=== PATIENT | female | born 1985 | race Hispanic/Latino ===

== ENCOUNTER 2020-06-11 16:51 | Outpatient (CLI) | payer MEDICAID ==
[2020-06-11] MEDS ORDERED: LACTATED RINGERS 1,000 ML IV SCH (17:30)
--- NOTE | 2020-06-11 18:09 | History and Physical Report ---
History of Present Illness Date of examination: 06/11/20 Date of admission: 06/11/2020 Chief complaint: I was told that my baby is small History of present illness: Pt is a 34 year old who presented today from [facility] after being told that her baby was severely IUGR with polyhydramnios and that she would need to be delivered. Pt was sent there to decide EDC as patient has had only 2 visits (one in January and one in May) and never had ultrasound performed due to insurance issues. Pt had normal 10/03 testing on exam with a reactive NST and normal doppler flow. The EDC of 07/03/20 was arrived at only because of patients reported LMP however patient has a history of abnormal cycles. labs have not been drawn. ONly pap, cultures and GBS are available at this time. Past History Past Medical History: no pertinent history Past Surgical History: no surgical history Social history: - Obstetrical History : 3 Number of Living Children: 2 Medications and Allergies Allergies Allergy/AdvReac Type Severity Reaction Status Date / Time No Known Allergies Allergy Verified 03/05/19 10:12 Home Medications Medication Instructions Recorded Confirmed Last Taken Type Ferrous Sulfate [Iron 325 MG] 325 mg PO BID 03/05/19 03/05/19 03/05/19 06:30 History Vitamin 1 tab PO DAILY 03/05/19 03/05/19 03/04/19 09:00 History Ferrous Sulfate [Feosol 325 MG tab] 325 mg PO BID #60 tablet 03/08/19 Unknown Rx HYDROcodone/APAP 5-325 [[place] 1 each PO Q6HR PRN #20 tablet 03/08/19 Unknown Rx 5/325] Ibuprofen [Motrin] 800 mg PO Q8HR PRN #30 tablet 03/08/19 Unknown Rx Active Meds: Active Medications Lactated Ringer's (Lactated Ringers) 1,000 mls @ 125 mls/hr IV DIRECT MICHELLE Review of Systems All systems: negative Breasts: deferred Genitourinary: normal appearance - Vital Signs Vital signs: Vital Signs Pulse Pulse Ox 83 98 06/11/20 17:36 06/11/20 17:36 Temp Pulse Resp BP Pulse Ox 98 F 85 20 114/66 94 06/11/20 17:37 06/11/20 18:03 06/11/20 17:37 06/11/20 17:38 06/11/20 18:03 - Physical Exam Breasts: Cardiovascular: Regular rate, Normal S1, Normal S2 Lungs: Positive: Clear to auscultation, Normal air movement Abdomen: Positive: normal appearance, soft, normal bowel sounds. Negative: distention, tenderness Genitourinary (Female): Positive: normal external genitalia Vulva: both: normal Vagina: Positive: normal moisture. Negative: discharge Cervix: Negative: lesion, discharge Uterus: Positive: normal size, normal contour Adnexa: both: normal Anus/Rectum: Positive: rectal mass, heme negative. Negative: hemorrhoids Extremities: Deep Tendon Reflex Grade: Normal +2 - Obstetrical FHR: auscultation normal Cervical Dilatation: 0.5 Cervical Effacement Percentage: 50 station: -3 Uterine Contraction Pattern: Irregular Results All other labs normal. Assessment and Plan IUP sent from [facility] for delivery, however, patient has had no care and is unsure of lmp. Dr Head from [facility] was unavailable to discuss patient today. I feel strongly that patient's LMP is incorrect and that her actual EDC is closer to July 2020. Pt has excellent testing with 8/8 biophysical, and normal dopplers. In light of these findings, I would prefer not to deliver this patient who may be only 32 weeks instead of 37 as her EDC is based on an abnormal cycle and an estimate. Instead, will watch patient overnight and repeat BPP on tomorrow. If still stable, will consider discharge to home with follow up in office. WIll call [facility] doctor service station attendant to discuss.
[2020-06-11] MEDS ORDERED: LACTATED RINGERS 500 ML IV ONE (18:16)
[2020-06-11] MEDS ORDERED: BETAMET ACET/BETAMET NA PH 6 MG/ML INJ 5 ML MDV IM ONE ×2 (18:19→19:00)
[2020-06-11 23:52] LABS: Basophils % (Auto) 0.1 % (0.0-1.8); Eosinophils % (Auto) 0.2 % (0.0-4.3); Hematocrit 27.1 % (30.3-42.9); Lymphocytes # (Auto) 1.1 K/mm3 (1.2-5.4); Lymphocytes % (Auto) 10.3 % (13.4-35.0); Mean Corpuscular HGB Conc 33 % (30-34); Mean Corpuscular Volume 83 fl (79-97); Monocytes # (Auto) 0.1 K/mm3 (0.0-0.8); Platelet Count 241 K/mm3 (140-440); Red Blood Count 3.28 M/mm3 (3.65-5.03); Red Cell Distribution Width 14.4 % (13.2-15.2)
[2020-06-12 01:48] LABS: Bilirubin,Urine NEG (Negative); Blood,Urine NEG (Negative); Color,Urine Straw (Yellow); Protein,Urine <15 mg/dL mg/dL (Negative); RBC,Urine < 1.0 /HPF (0.0-6.0); Urobilinogen,Urine < 2.0 mg/dL (<2.0)
[2020-06-12] MEDS ORDERED: BETAMET ACET/BETAMET NA PH 6 MG/ML INJ 5 ML MDV IM ONE (07:00)
[2020-06-12 08:46] VITALS: BP 105/56
--- NOTE | 2020-06-12 11:31 | Progress Note ---
Assessment and Plan - Patient Problems (1) Intrauterine growth restriction affecting care of mother Current Visit: Yes Status: Acute Plan to address problem: Awaiting results of biophysical profile Subjective - Subjective Date of service: 06/12/20 Principal diagnosis: Suspected IUGR Interval history: The patient is currently without complaints. Determined that the estimated due date was an accurate. Patient does not demonstrate evidence of intrauterine growth restriction. Scheduled to have a biophysical profile today. Patient reports: no new complaints Objective - Vital Signs Vital Signs: Vital Signs - 12hr 06/11/20 06/11/20 06/11/20 23:31 23:36 23:41 Temperature Pulse Rate 89 90 98 H Respiratory Rate Blood Pressure Blood Pressure [Right] O2 Sat by Pulse 98 98 98 Oximetry 06/11/20 06/11/20 06/11/20 23:46 23:51 23:56 Temperature Pulse Rate 91 H 91 H 97 H Respiratory Rate Blood Pressure Blood Pressure [Right] O2 Sat by Pulse 99 98 98 Oximetry 06/11/20 06/12/20 06/12/20 23:59 00:00 00:01 Temperature 98.0 F Pulse Rate 85 88 Respiratory 18 Rate Blood Pressure 120/57 Blood Pressure [Right] O2 Sat by Pulse 98 Oximetry 06/12/20 06/12/20 06/12/20 00:06 00:11 00:16 Temperature Pulse Rate 88 89 86 Respiratory Rate Blood Pressure Blood Pressure [Right] O2 Sat by Pulse 98 97 96 Oximetry 06/12/20 06/12/20 06/12/20 00:21 00:26 00:31 Temperature Pulse Rate 87 96 H 93 H Respiratory Rate Blood Pressure Blood Pressure [Right] O2 Sat by Pulse 96 97 97 Oximetry 06/12/20 06/12/20 06/12/20 00:36 00:41 00:46 Temperature Pulse Rate 92 H 82 88 Respiratory Rate Blood Pressure Blood Pressure [Right] O2 Sat by Pulse 99 98 98 Oximetry 06/12/20 06/12/20 06/12/20 00:51 00:56 01:07 Temperature Pulse Rate 91 H 91 H 97 H Respiratory Rate Blood Pressure Blood Pressure [Right] O2 Sat by Pulse 96 96 99 Oximetry 06/12/20 06/12/20 06/12/20 01:10 01:12 01:17 Temperature Pulse Rate 79 90 84 Respiratory Rate Blood Pressure Blood Pressure [Right] O2 Sat by Pulse 91 96 96 Oximetry 06/12/20 06/12/20 06/12/20 01:22 01:27 01:32 Temperature Pulse Rate 85 85 88 Respiratory Rate Blood Pressure Blood Pressure [Right] O2 Sat by Pulse 97 97 98 Oximetry 06/12/20 06/12/20 06/12/20 01:37 01:42 01:47 Temperature Pulse Rate 88 96 H 90 Respiratory Rate Blood Pressure Blood Pressure [Right] O2 Sat by Pulse 97 99 96 Oximetry 06/12/20 06/12/20 06/12/20 01:52 01:57 02:02 Temperature Pulse Rate 91 H 90 103 H Respiratory Rate Blood Pressure Blood Pressure [Right] O2 Sat by Pulse 97 96 97 Oximetry 06/12/20 06/12/20 06/12/20 02:05 02:07 02:12 Temperature Pulse Rate 95 H 97 H 103 H Respiratory Rate Blood Pressure Blood Pressure [Right] O2 Sat by Pulse 94 97 98 Oximetry 06/12/20 06/12/20 06/12/20 02:17 02:22 02:27 Temperature Pulse Rate 99 H 95 H 93 H Respiratory Rate Blood Pressure Blood Pressure [Right] O2 Sat by Pulse 98 97 95 Oximetry 06/12/20 06/12/20 06/12/20 02:31 02:32 02:37 Temperature Pulse Rate 89 90 99 H Respiratory Rate Blood Pressure Blood Pressure [Right] O2 Sat by Pulse 94 95 97 Oximetry 06/12/20 06/12/20 06/12/20 02:42 02:47 02:52 Temperature Pulse Rate 89 88 91 H Respiratory Rate Blood Pressure Blood Pressure [Right] O2 Sat by Pulse 98 97 95 Oximetry 06/12/20 06/12/20 06/12/20 02:56 02:57 03:01 Temperature Pulse Rate 93 H 95 H 89 Respiratory Rate Blood Pressure Blood Pressure [Right] O2 Sat by Pulse 93 96 94 Oximetry 06/12/20 06/12/20 06/12/20 03:02 03:07 03:11 Temperature Pulse Rate 86 89 87 Respiratory Rate Blood Pressure Blood Pressure [Right] O2 Sat by Pulse 95 95 94 Oximetry 06/12/20 06/12/20 06/12/20 03:12 03:16 03:17 Temperature Pulse Rate 89 83 85 Respiratory Rate Blood Pressure Blood Pressure [Right] O2 Sat by Pulse 97 94 96 Oximetry 0406/12/20 06/12/20 03:22 03:25 03:27 Temperature Pulse Rate 89 85 89 Respiratory Rate Blood Pressure Blood Pressure [Right] O2 Sat by Pulse 96 94 95 Oximetry 06/12/20 06/12/20 06/12/20 03:31 03:32 03:36 Temperature Pulse Rate 79 79 80 Respiratory Rate Blood Pressure Blood Pressure [Right] O2 Sat by Pulse 88 95 94 Oximetry 06/12/20 06/12/20 06/12/20 03:37 03:42 03:43 Temperature Pulse Rate 82 79 81 Respiratory Rate Blood Pressure Blood Pressure [Right] O2 Sat by Pulse 96 95 94 Oximetry 06/12/20 06/12/20 06/12/20 03:47 03:52 03:57 Temperature Pulse Rate 82 80 80 Respiratory Rate Blood Pressure Blood Pressure [Right] O2 Sat by Pulse 94 94 94 Oximetry 06/12/20 06/12/20 06/12/20 04:02 04:07 04:08 Temperature Pulse Rate 78 79 79 Respiratory Rate Blood Pressure Blood Pressure [Right] O2 Sat by Pulse 93 95 93 Oximetry 06/12/20 06/12/20 06/12/20 04:12 04:14 04:17 Temperature Pulse Rate 84 78 81 Respiratory Rate Blood Pressure Blood Pressure [Right] O2 Sat by Pulse 95 94 95 Oximetry 06/12/20 06/12/20 06/12/20 04:19 04:22 04:25 Temperature Pulse Rate 83 80 79 Respiratory Rate Blood Pressure Blood Pressure [Right] O2 Sat by Pulse 93 95 93 Oximetry 06/12/20 06/12/20 06/12/20 04:27 04:28 04:31 Temperature 97.9 F Pulse Rate 95 H 85 Respiratory 16 Rate Blood Pressure 99/64 Blood Pressure [Right] O2 Sat by Pulse 96 Oximetry 06/12/20 06/12/20 06/12/20 04:32 04:37 04:39 Temperature Pulse Rate 81 82 82 Respiratory Rate Blood Pressure Blood Pressure [Right] O2 Sat by Pulse 96 95 94 Oximetry 06/12/20 06/12/20 06/12/20 04:42 04:47 04:49 Temperature Pulse Rate 84 80 84 Respiratory Rate Blood Pressure Blood Pressure [Right] O2 Sat by Pulse 95 95 94 Oximetry 06/12/20 06/12/20 06/12/20 04:53 04:56 04:58 Temperature Pulse Rate 87 82 75 Respiratory Rate Blood Pressure Blood Pressure [Right] O2 Sat by Pulse 96 94 95 Oximetry 06/12/20 06/12/20 06/12/20 05:03 05:08 05:09 Temperature Pulse Rate 77 75 77 Respiratory Rate Blood Pressure Blood Pressure [Right] O2 Sat by Pulse 94 95 94 Oximetry 06/12/20 06/12/20 06/12/20 05:13 05:14 05:18 Temperature Pulse Rate 78 79 83 Respiratory Rate Blood Pressure Blood Pressure [Right] O2 Sat by Pulse 94 94 94 Oximetry 06/12/20 06/12/20 06/12/20 05:19 05:23 05:25 Temperature Pulse Rate 78 79 78 Respiratory Rate Blood Pressure Blood Pressure [Right] O2 Sat by Pulse 94 95 94 Oximetry 06/12/20 06/12/20 06/12/20 05:28 05:30 05:33 Temperature Pulse Rate 79 77 83 Respiratory Rate Blood Pressure Blood Pressure [Right] O2 Sat by Pulse 95 94 94 Oximetry 06/12/20 06/12/20 06/12/20 05:35 05:38 05:43 Temperature Pulse Rate 75 75 73 Respiratory Rate Blood Pressure Blood Pressure [Right] O2 Sat by Pulse 94 94 96 Oximetry 06/12/20 06/12/20 06/12/20 05:48 05:49 05:53 Temperature Pulse Rate 77 74 77 Respiratory Rate Blood Pressure Blood Pressure [Right] O2 Sat by Pulse 96 92 95 Oximetry 06/12/20 06/12/20 06/12/20 05:58 06:03 06:08 Temperature Pulse Rate 78 78 77 Respiratory Rate Blood Pressure Blood Pressure [Right] O2 Sat by Pulse 96 97 96 Oximetry 06/12/20 06/12/20 06/12/20 06:13 06:18 06:23 Temperature Pulse Rate 78 86 80 Respiratory Rate Blood Pressure Blood Pressure [Right] O2 Sat by Pulse 96 97 98 Oximetry 06/12/20 06/12/20 06/12/20 06:28 06:33 06:36 Temperature Pulse Rate 80 79 84 Respiratory Rate Blood Pressure Blood Pressure [Right] O2 Sat by Pulse 95 96 93 Oximetry 06/12/20 06/12/20 06/12/20 06:38 06:43 06:48 Temperature Pulse Rate 80 83 83 Respiratory Rate Blood Pressure Blood Pressure [Right] O2 Sat by Pulse 96 96 95 Oximetry 06/12/20 06/12/20 06/12/20 06:49 06:53 06:58 Temperature Pulse Rate 80 86 87 Respiratory Rate Blood Pressure Blood Pressure [Right] O2 Sat by Pulse 94 95 95 Oximetry 06/12/20 06/12/20 06/12/20 07:03 07:08 07:13 Temperature Pulse Rate 85 81 84 Respiratory Rate Blood Pressure Blood Pressure [Right] O2 Sat by Pulse 96 96 95 Oximetry 06/12/20 06/12/20 06/12/20 07:18 07:23 07:28 Temperature Pulse Rate 83 81 81 Respiratory Rate Blood Pressure Blood Pressure [Right] O2 Sat by Pulse 95 95 96 Oximetry 06/12/20 06/12/20 06/12/20 07:33 07:38 07:39 Temperature Pulse Rate 82 80 81 Respiratory Rate Blood Pressure Blood Pressure [Right] O2 Sat by Pulse 94 95 94 Oximetry 06/12/20 06/12/20 06/12/20 07:43 07:44 07:48 Temperature Pulse Rate 80 81 82 Respiratory Rate Blood Pressure Blood Pressure [Right] O2 Sat by Pulse 94 94 95 Oximetry 06/12/20 06/12/20 06/12/20 07:50 07:53 07:56 Temperature Pulse Rate 79 80 80 Respiratory Rate Blood Pressure Blood Pressure [Right] O2 Sat by Pulse 94 94 94 Oximetry 06/12/20 06/12/20 06/12/20 07:58 08:02 08:03 Temperature Pulse Rate 82 84 81 Respiratory Rate Blood Pressure Blood Pressure [Right] O2 Sat by Pulse 95 94 94 Oximetry 06/12/20 06/12/20 06/12/20 08:07 08:08 08:13 Temperature Pulse Rate 80 79 83 Respiratory Rate Blood Pressure Blood Pressure [Right] O2 Sat by Pulse 93 95 95 Oximetry 06/12/20 06/12/20 06/12/20 08:18 08:22 08:23 Temperature Pulse Rate 83 81 80 Respiratory Rate Blood Pressure Blood Pressure [Right] O2 Sat by Pulse 96 94 95 Oximetry 06/12/20 06/12/20 06/12/20 08:28 08:33 08:38 Temperature Pulse Rate 80 78 83 Respiratory Rate Blood Pressure Blood Pressure [Right] O2 Sat by Pulse 97 95 95 Oximetry 06/12/20 06/12/20 06/12/20 08:39 08:43 08:45 Temperature 98.1 F Pulse Rate 76 81 89 Respiratory 18 Rate Blood Pressure 105/56 Blood Pressure 105/56 [Right] O2 Sat by Pulse 94 95 96 Oximetry 06/12/20 06/12/20 06/12/20 08:48 08:53 08:54 Temperature Pulse Rate 88 79 79 Respiratory Rate Blood Pressure Blood Pressure [Right] O2 Sat by Pulse 97 93 92 Oximetry 06/12/20 06/12/20 06/12/20 08:58 09:05 09:10 Temperature Pulse Rate 90 87 81 Respiratory Rate Blood Pressure Blood Pressure [Right] O2 Sat by Pulse 99 99 100 Oximetry 06/12/20 06/12/20 06/12/20 09:15 09:20 09:25 Temperature Pulse Rate 83 81 81 Respiratory Rate Blood Pressure Blood Pressure [Right] O2 Sat by Pulse 99 98 99 Oximetry 06/12/20 06/12/20 06/12/20 09:30 09:35 09:40 Temperature Pulse Rate 85 80 83 Respiratory Rate Blood Pressure Blood Pressure [Right] O2 Sat by Pulse 98 99 98 Oximetry 06/12/20 06/12/20 06/12/20 09:45 09:50 09:55 Temperature Pulse Rate 81 81 81 Respiratory Rate Blood Pressure Blood Pressure [Right] O2 Sat by Pulse 99 97 98 Oximetry 06/12/20 06/12/20 06/12/20 10:00 10:01 10:05 Temperature Pulse Rate 88 92 H 95 H Respiratory Rate Blood Pressure Blood Pressure [Right] O2 Sat by Pulse 99 93 99 Oximetry 06/12/20 06/12/20 06/12/20 10:10 10:15 10:20 Temperature Pulse Rate 94 H 97 H 95 H Respiratory Rate Blood Pressure Blood Pressure [Right] O2 Sat by Pulse 99 100 100 Oximetry 06/12/20 06/12/20 06/12/20 10:25 10:30 10:35 Temperature Pulse Rate 90 91 H 88 Respiratory Rate Blood Pressure Blood Pressure [Right] O2 Sat by Pulse 100 97 98 Oximetry 06/12/20 06/12/20 06/12/20 10:40 10:45 10:50 Temperature Pulse Rate 109 H 92 H 93 H Respiratory Rate Blood Pressure Blood Pressure [Right] O2 Sat by Pulse 98 98 97 Oximetry 06/12/20 06/12/20 06/12/20 10:55 11:00 11:05 Temperature Pulse Rate 89 104 H 96 H Respiratory Rate Blood Pressure Blood Pressure [Right] O2 Sat by Pulse 97 96 97 Oximetry 06/12/20 06/12/20 06/12/20 11:10 11:15 11:20 Temperature Pulse Rate 89 87 92 H Respiratory Rate Blood Pressure Blood Pressure [Right] O2 Sat by Pulse 97 97 95 Oximetry 06/12/20 11:25 Temperature Pulse Rate 88 Respiratory Rate Blood Pressure Blood Pressure [Right] O2 Sat by Pulse 96 Oximetry - Labs Labs: Abnormal Labs 06/11/20 23:24 RBC 3.28 L Hgb 9.0 L Hct 27.1 L Lymph % (Auto) 10.3 L Lymph # (Auto) 1.1 L Seg Neutrophils % 88.4 H Seg Neutrophils # 9.6 H Laboratory Results - last 24 hr 06/11/20 06/11/20 06/11/20 23:24 23:24 23:24 WBC 10.9 RBC 3.28 L Hgb 9.0 L Hct 27.1 L MCV 83 MCH 28 MCHC 33 RDW 14.4 Plt Count 241 Lymph % (Auto) 10.3 L [place] % (Auto) 1.0 Eos % (Auto) 0.2 Baso % (Auto) 0.1 Lymph # (Auto) 1.1 L [place] # (Auto) 0.1 Eos # (Auto) 0.0 Baso # (Auto) 0.0 Seg Neutrophils % 88.4 H Seg Neutrophils # 9.6 H Urine Color Urine Turbidity Urine pH Ur Specific [place] Urine Protein Urine Glucose (UA) Urine Ketones Urine Blood Urine Nitrite Urine Bilirubin Urine Urobilinogen Ur Leukocyte Esterase Urine WBC (Auto) Urine RBC (Auto) Syphilis IgG Antibody Nonreactive HIV 1&2 Antibody Rapid HIV P24 Antigen Rubella IgG Antibody Blood Type O POSITIVE Antibody Screen Negative 06/11/20 06/12/20 06/12/20 23:24 00:02 01:30 WBC RBC Hgb Hct MCV MCH MCHC RDW Plt Count Lymph % (Auto) [place] % (Auto) Eos % (Auto) Baso % (Auto) Lymph # (Auto) [place] # (Auto) Eos # (Auto) Baso # (Auto) Seg Neutrophils % Seg Neutrophils # Urine Color Straw Urine Turbidity Clear Urine pH 7.0 Ur Specific [place] 1.006 Urine Protein <15 mg/dl Urine Glucose (UA) Neg Urine Ketones Tr Urine Blood Neg Urine Nitrite Neg Urine Bilirubin Neg Urine Urobilinogen < 2.0 Ur Leukocyte Esterase Neg Urine WBC (Auto) 2.0 Urine RBC (Auto) < 1.0 Syphilis IgG Antibody HIV 1&2 Antibody Rapid Non react HIV P24 Antigen Non react Rubella IgG Antibody Non-immune Blood Type Antibody Screen
--- NOTE | 2020-06-12 12:37 | Ultrasound Report ---
US OB bpp ea add exam INDICATION / CLINICAL INFORMATION: labor. COMPARISON: None available. FINDINGS: BPP is 6/8 IMPRESSION: BPP is 6/8 due to absent breathing movements Signer Name: Wisam Lay MD FACR Signed: 06/12/2020 12:33 PM Workstation Name: [id number]
--- NOTE | 2020-06-12 13:04 | Consultation ---
History of Present Illness - History of Present Illness [facility] LATE ENTRY NOTE Spoke to Dr. Maribel La last evening at 730PM regarding patient. I was provided with more information regarding the patient that she did not disclose in the office. Patient has had only 2 visits this and has had irregular periods. Biometry measures concordant with 31+6 weeks GA on 06/11/2020. Revised growth parameter is at 22nd percentile. Revised report sent to Dr. La. Patient may follow up with [facility] in 1 week for testing 2/2 polyhydramnios noted on office scan. Past History Social history: Medications and Allergies Allergies Allergy/AdvReac Type Severity Reaction Status Date / Time No Known Allergies Allergy Verified 03/05/19 10:12 Home Medications Medication Instructions Recorded Confirmed Last Taken Type Ferrous Sulfate [Iron 325 MG] 325 mg PO BID 03/05/19 03/05/19 03/05/19 06:30 History Vitamin 1 tab PO DAILY 03/05/19 03/05/19 03/04/19 09:00 History Ferrous Sulfate [Feosol 325 MG tab] 325 mg PO BID #60 tablet 03/08/19 Unknown Rx HYDROcodone/APAP 5-325 [[place] 1 each PO Q6HR PRN #20 tablet 03/08/19 Unknown Rx 5/325] Ibuprofen [Motrin] 800 mg PO Q8HR PRN #30 tablet 03/08/19 Unknown Rx Active Meds: Active Medications Lactated Ringer's (Lactated Ringers) 1,000 mls @ 125 mls/hr IV DIRECT MICHELLE Last Admin: 06/12/20 04:33 Dose: 125 mls/hr Documented by: Exam - Constitutional Vitals: Temp Pulse Resp BP Pulse Ox 98.1 F 82 18 105/56 97 06/12/20 08:45 06/12/20 13:00 06/12/20 08:45 06/12/20 08:45 06/12/20 13:00 Results - Labs CBC & Chem 7: 06/11/20 23:24 Labs: Abnormal lab results 06/11/20 Range/Units 23:24 RBC 3.28 L (3.65-5.03) M/mm3 Hgb 9.0 L (10.1-14.3) gm/dl Hct 27.1 L (30.3-42.9) % Lymph % (Auto) 10.3 L (13.4-35.0) % Lymph # (Auto) 1.1 L (1.2-5.4) K/mm3 Seg Neutrophils % 88.4 H (40.0-70.0) % Seg Neutrophils # 9.6 H (1.8-7.7) K/mm3
== END 2020-06-12 14:23 | disposition home or self-care (01) ==
LOC: TRG 16:51 → APU 16:53 → LD 21:40 → TRG 06-12 14:23
PROVIDERS: ATTEND Obstetrics & Gynecology
DX: O47.03 False labor before 37 completed weeks of gestation, third trimester (principal); O32.1XX0 Maternal care for breech presentation, not applicable or unspecified; Z3A.36 36 weeks gestation of pregnancy
CPT/HCPCS: 36415; 59025; 76819; 81001; 85025; 86592; 86762; 86850; 86900; 86901; 87806; 96360; 96372; J0702; J7120

== ENCOUNTER 2020-08-05 23:26 | Inpatient (IN) | payer MEDICAID ==
[2020-08-06] MEDS ORDERED: LACTATED RINGERS 1,000 ML IV ONE (00:30)
[2020-08-06] MEDS ORDERED: LACTATED RINGERS 1,000 ML ONE (00:38)
[2020-08-06] MEDS ORDERED: LIDOCAINE (2%) 20 MG/1 ML VIAL 20 ML MDV INFILTRATI ONE (03:44)
[2020-08-06] MEDS ORDERED: fentaNYL 100 MCG/2 ML INJ IV PRN (03:44)
[2020-08-06] MEDS ORDERED: MINERAL OIL 30 ML ORAL LIQD PO PRN (03:44)
[2020-08-06] MEDS ORDERED: TERBUTALINE 1 MG/1 ML INJ SUB-Q PRN (03:44)
[2020-08-06] MEDS ORDERED: ONDANSETRON 4 MG/2 ML INJ IV PRN ×2 (03:44→15:43)
[2020-08-06] MEDS ORDERED: LACTATED RINGERS 1,000 ML IV SCH (03:45)
[2020-08-06] MEDS ORDERED: OXYTOCIN DRIP 30 UNITS/500 ML BAG IV SCH ×2 (04:00)
[2020-08-06 04:10] LABS: Hematocrit 29.9 % (30.3-42.9); Hemoglobin 9.2 gm/dl (10.1-14.3); Mean Corpuscular HGB Conc 31 % (30-34); Mean Corpuscular Volume 75 fl (79-97); Platelet Count 304 K/mm3 (140-440); Red Blood Count 3.98 M/mm3 (3.65-5.03); Red Cell Distribution Width 16.1 % (13.2-15.2)
[2020-08-06] MEDS ORDERED: NALOXONE 2 MG/2 ML INJ IV PRN (05:17)
[2020-08-06] MEDS ORDERED: ePHEDrine SULFATE 50 MG/1 ML INJ IV PRN (05:17)
--- NOTE | 2020-08-06 05:41 | Progress Note ---
Labor Epidural - Labor Epidural Start Time: 05:30 Stop Time: 05:32 Performed by:: GLORY OZUNA Procedure: Patient is requesting epidural for labor pain. H&P, and labs reviewed. Procedure explained, questions answered, consent obtained. Patient in sitting position with blood pressure cuff and pulse ox on and working. Timeout performed immediately before start of procedure. Sterile chlorahexadine 0.5% prep/drape. 3 mL 1% lidocaine skin wheal at L[3]-L[4]. 18-gauge iPharro Mediatead epidural needle advanced to [id number] with saline at [7] cm. 27-gauge spinal needle advanced until clear, free-flowing CSF. Intrathecal dexmedetomidine [5] mcg administered and needle removed. Epidural catheter advanced to [12] cm, negative aspiration for blood and csf, negative test dose 3 ml 1.5% lidocaine with epinephrine. Sterile steri-strips and tegaderm applied, followed by tape reinforcement. Patient tolerated procedure well.
--- NOTE | 2020-08-06 05:41 | Anesthesia Consultation ---
Anesthesia Consult and Med Hx Date of service: 08/06/20 - Airway Anesthetic Teeth Evaluation: Good ROM Head & Neck: Adequate Mental/Hyoid Distance: Adequate Mallampati Class: Class II Intubation Access Assessment: Probably Good - Pulmonary Exam CTA: Yes - Cardiac Exam Cardiac Exam: RRR - Pre-Operative Health Status ASA Pre-Surgery Classification: ASA2 Proposed Anesthetic Plan: Epidural - Pulmonary Hx Asthma: No COPD: No Hx Pneumonia: No - Cardiovascular System Hx Hypertension: No - Central Nervous System Hx Seizures: No Hx Psychiatric Problems: No - Endocrine Hx Renal Disease: No Hx End Stage Renal Disease: No Hx Hypothyroidism: No Hx Hyperthyroidism: No - Hematic Hx Anemia: No Hx Sickle Cell Disease: No - Other Systems Hx Alcohol Use: No
[2020-08-06] MEDS: ePHEDrine SULFATE 50 MG/1 ML INJ IV PRN ×2 (05:59→06:07)
[2020-08-06] MEDS ORDERED: fentaNYL-BUPIV 2 MCG/ML-0.125% 200 MCG/100 ML BAG EPIDURAL SCH (06:00)
--- NOTE | 2020-08-06 08:27 | History and Physical Report ---
History of Present Illness Date of examination: 08/06/20 Date of admission: 08/06/20 03:44 Chief complaint: I am having contractions History of present illness: Patient is a 35-year-old 3 para 2 presents to the plan of contractions. Her course has been complicated by inconsistent care. Patient lost her insurance at in the first trimester and did not represent until the third trimester. Her labs are all normal she is GBS negative. The baby initially presented as breech however converted spontaneously to vertex. She is rubella nonimmune Past History Past Medical History: no pertinent history, other (Anemia) Past Surgical History: no surgical history Family/Genetic History: none Social history: - Obstetrical History Expected Date of Delivery: 08/07/20 Actual Gestation: 39 Week(s) 6 Day(s) : 3 Para: 2 Number of Living Children: 2 Medications and Allergies Allergies Allergy/AdvReac Type Severity Reaction Status Date / Time No Known Allergies Allergy Verified 03/05/19 10:12 Home Medications Medication Instructions Recorded Confirmed Last Taken Type Ferrous Sulfate [Iron 325 MG] 325 mg PO BID 03/05/19 08/06/20 03/05/19 06:30 History Vitamin 1 tab PO DAILY 03/05/19 08/06/20 08/05/20 10:00 History Ferrous Sulfate [Feosol 325 MG tab] 325 mg PO BID #60 tablet 03/08/19 08/06/20 Unknown Rx HYDROcodone/APAP 5-325 [[place] 1 each PO Q6HR PRN #20 tablet 03/08/19 08/06/20 Unknown Rx 5/325] Ibuprofen [Motrin] 800 mg PO Q8HR PRN #30 tablet 03/08/19 08/06/20 Unknown Rx Active Meds: Active Medications Ephedrine Sulfate (Ephedrine Sulfate 50 Mg/1 Ml Inj) 10 mg IV Q2M PRN PRN Reason: Hypotension Last Admin: 08/06/20 06:07 Dose: 10 mg Documented by: Fentanyl (Fentanyl 100 Mcg/2 Ml Inj) 100 mcg IV Q2H PRN PRN Reason: Pain,Severe (7-10) LABOR PAIN Oxytocin/Sodium Chloride (Pitocin/Ns 30 Unit/500ml) 30 units in 500 mls @ 2 mls/hr IV TITR MICHELLE; Protocol Last Admin: 08/06/20 08:15 Dose: 4 mls/hr, 4 mls/hr Documented by: Lactated Ringer's (Lactated Ringers) 1,000 mls @ 125 mls/hr IV DIRECT MICHELLE Oxytocin/Sodium Chloride (Pitocin/Ns 30 Unit/500ml) 30 units in 500 mls @ 40 mls/hr IV TITR MICHELLE; Protocol Fentanyl/Bupivacaine/Sodium Chlor (Fentanyl-Bupiv 2 Mcg/Ml-0.125%) 200 mcg in 100 mls @ 12 mls/hr EPIDURAL TITR MICHELLE; Protocol Last Admin: 08/06/20 05:57 Dose: 12 mls/hr Documented by: Mineral Oil (Mineral Oil 30 Ml Oral Liqd) 30 ml PO QHS PRN PRN Reason: Constipation Naloxone HCl (Naloxone 2 Mg/2 Ml Inj) 0.2 mg IV Q5M PRN PRN Reason: Respiratory sedation Ondansetron HCl (Ondansetron 4 Mg/2 Ml Inj) 4 mg IV Q8H PRN PRN Reason: Nausea And Vomiting Terbutaline Sulfate (Terbutaline 1 Mg/1 Ml Inj) 0.25 mg SUB-Q ONCE PRN PRN Reason: Hyperstimulation/Hypertonicity Review of Systems All systems: negative Genitourinary: contractions - Vital Signs Vital signs: Vital Signs Temp Pulse Resp BP 98.8 F 104 H 18 113/72 08/06/20 00:02 08/06/20 00:02 08/06/20 00:02 08/06/20 00:02 Temp Pulse Resp BP Pulse Ox 98.4 F 88 18 112/71 99 08/06/20 07:17 08/06/20 08:13 08/06/20 00:02 08/06/20 08:13 08/06/20 08:13 - Physical Exam Breasts: Cardiovascular: Regular rate, Normal S1, Normal S2 Lungs: Positive: Clear to auscultation, Normal air movement Abdomen: Positive: normal appearance, soft, normal bowel sounds. Negative: distention, tenderness Genitourinary (Female): Positive: normal external genitalia, normal perenium Vulva: both: normal Vagina: Positive: normal moisture. Negative: discharge Cervix: Negative: lesion, discharge Uterus: Positive: normal size, normal contour Adnexa: both: normal Anus/Rectum: Positive: normal perianal skin, heme negative. Negative: rectal mass, hemorrhoids Extremities: Deep Tendon Reflex Grade: Normal +2 - Obstetrical FHR: auscultation normal Cervical Dilatation: 5 Cervical Effacement Percentage: 60 station: -2 Uterine Contraction Pattern: Irregular Results Result Diagrams: 08/06/20 03:45 Abnormal lab results 08/06/20 Range/Units 03:45 Hgb 9.2 L (10.1-14.3) gm/dl Hct 29.9 L (30.3-42.9) % MCV 75 L (79-97) fl MCH 23 L (28-32) pg RDW 16.1 H (13.2-15.2) % All other labs normal. Assessment and Plan IUP at 39 6/7 here with contractions and in labor. Will admit for labor. AROM when able. Patient to have epidural when ready. Anticipate
[2020-08-06] MEDS ORDERED: BUPIVACAINE/PF (0.25%) 2.5 MG/ML 10 ML VIAL INFILTRATI ONE (11:59)
[2020-08-06] MEDS ORDERED: OXYTOCIN 10 UNIT/1 ML INJ ONE (14:48)
[2020-08-06] MEDS ORDERED: OXYTOCIN 10 UNIT/1 ML INJ IM ONE (15:00)
--- NOTE | 2020-08-06 15:05 | Procedure Note ---
OB Delivery Note - Delivery Date of Delivery: 08/06/20 Surgeon: SHERLEY VAZQUEZ Estimated blood loss: 200cc - Vaginal Delivery presentation: vertex Delivery position: OA Delivery augmentation: rupture of membranes, pitocin Delivery monitor: external FHT, external uterine Route of delivery: Delivery placenta: spontaneous Delivery cord: 3 umbilical vessels Episiotomy: none Delivery laceration: vaginal side wall Delivery repair: vicryl Anesthesia: epidural Delivery comments: Viable male delivered over intact perineum at 1437 without evidence of nuchal cord. Infant was suctioned on the perineum and had spontaneous cry. was placed on maternal abdomen. Cord was clamped and cut when done pulsating. Weight of infant 6 pounds 13 ounces/3717 g. Placenta was delivered spontaneously and intact with three-vessel cord. Small laceration on vaginal cells repaired with 2-0 Vicryl in sterile fashion. There was excellent hemostasis at the end of the procedure. The patient tolerated the procedure well.
[2020-08-06] MEDS ORDERED: MAGNESIUM HYDROXIDE (MOM) ORAL LIQD UDC PO PRN (15:43)
[2020-08-06] MEDS ORDERED: PROMETHAZINE 25 MG RECT SUPP PR PRN (15:43)
[2020-08-06] MEDS ORDERED: diphenhydrAMINE 25 MG CAP PO PRN (15:43)
[2020-08-06] MEDS ORDERED: WITCH HAZEL/ GLYCERIN PAD TP PRN (15:43)
[2020-08-06] MEDS ORDERED: HYDROcodone/ACETAMINOPHEN 5-325 MG TAB PO PRN (15:43)
[2020-08-06] MEDS ORDERED: LANOLIN/ZINC/DIMETHICONE (LANSINOH) 7 GM TP PRN (15:43)
[2020-08-06] MEDS ORDERED: PROMETHAZINE 25 MG TAB PO PRN (15:43)
[2020-08-06] MEDS: IBUPROFEN 600 MG TAB PO SCH (23:08)
[2020-08-07 09:25] LABS: Hematocrit 28.6 % (30.3-42.9); Hemoglobin 8.9 gm/dl (10.1-14.3)
--- NOTE | 2020-08-07 09:58 | Progress Note ---
Assessment and Plan day 1 status post spontaneous vaginal delivery. Patient is doing well with no complaints. She reports only moderately heavy bleeding. Infant is in the room with mother. Her pain is well controlled. She denies any nausea vomiting fever or chills. We will plan to discharge home if infant is allowed to be discharged. Subjective - Subjective Date of service: 08/07/20 Interval history: Patient is a 35-year-old 3 para 2 presents to the plan of contractions. Her course has been complicated by inconsistent care. Patient lost her insurance at in the first trimester and did not represent until the third trimester. Her labs are all normal she is GBS negative. The baby initially presented as breech however converted spontaneously to vertex. She is rubella nonimmune Patient reports: appetite normal, voiding normally, pain well controlled, ambulating normally : doing well Objective - Vital Signs Latest vital signs: Vital Signs Temp Pulse Resp BP BP Pulse Ox 08/07/20 08:25 98.0 F 86 16 107/71 96 08/07/20 01:26 97.8 F 99 H 20 102/61 97 08/06/20 23:08 14 08/06/20 18:00 98.9 F 96 H 16 93/56 99 08/06/20 17:24 97.7 F 18 08/06/20 17:23 96 H 91/55 08/06/20 16:40 121 H 81 L 08/06/20 16:38 104 H 98 08/06/20 16:33 97 H 108/57 98 08/06/20 16:28 92 H 98 08/06/20 16:23 107 H 99 08/06/20 16:18 105 H 99 08/06/20 16:13 109 H 98 08/06/20 16:08 103 H 98 08/06/20 16:04 101 H 110/53 08/06/20 16:03 105 H 97 08/06/20 15:58 100 H 99 08/06/20 15:53 99 H 98 08/06/20 15:48 95 H 98 08/06/20 15:43 96 H 98 08/06/20 15:38 99 H 98 08/06/20 15:33 94 H 105/57 97 08/06/20 15:28 101 H 98 08/06/20 15:23 97 H 98 08/06/20 15:18 101 H 98 08/06/20 15:13 99 H 98 08/06/20 15:08 98 H 98 08/06/20 15:06 96 H 96/57 08/06/20 15:04 99 H 75/55 08/06/20 15:03 100 H 97 08/06/20 14:58 105 H 98 08/06/20 14:53 99 H 97 08/06/20 14:48 94 H 98 08/06/20 14:43 96 H 97 08/06/20 14:38 105 H 98 08/06/20 14:35 82 92 08/06/20 14:33 96 H 129/68 98 08/06/20 14:29 80 84 08/06/20 14:28 104 H 98 08/06/20 14:23 100 H 98 08/06/20 14:18 108 H 97 08/06/20 14:13 97 H 97 08/06/20 14:08 96 H 96 08/06/20 14:03 97 H 98/54 96 08/06/20 13:58 95 H 96 08/06/20 13:53 94 H 96 08/06/20 13:48 96 H 96 08/06/20 13:43 96 H 97 08/06/20 13:38 95 H 97 08/06/20 13:35 94 H 99/56 08/06/20 13:33 95 H 97 08/06/20 13:28 93 H 96 08/06/20 13:23 95 H 96 08/06/20 13:18 93 H 97 08/06/20 13:13 89 97 08/06/20 13:08 96 H 96 08/06/20 13:04 93 H 93/51 08/06/20 13:03 94 H 95 08/06/20 12:58 93 H 96 08/06/20 12:53 94 H 96 08/06/20 12:48 91 H 97 08/06/20 12:43 91 H 96 08/06/20 12:38 93 H 97 08/06/20 12:33 94 H 92/55 97 08/06/20 12:28 93 H 97 08/06/20 12:23 86 98 08/06/20 12:18 90 98 08/06/20 12:13 75 98 08/06/20 12:08 107 H 97 08/06/20 12:04 99 H 112/60 08/06/20 12:03 109 H 98 08/06/20 12:00 98.6 F 18 08/06/20 11:58 93 H 98 08/06/20 11:53 89 97 08/06/20 11:48 99 H 97 08/06/20 11:43 106 H 98 08/06/20 11:38 98 H 96 08/06/20 11:34 100 H 110/57 08/06/20 11:33 95 H 98 08/06/20 11:31 91 H 94 08/06/20 11:28 101 H 96 08/06/20 11:23 77 93 08/06/20 11:22 92 H 93 08/06/20 11:18 85 95 08/06/20 11:14 86 97/52 08/06/20 11:13 96 H 96 08/06/20 11:08 98 H 97 08/06/20 11:03 98 H 88/52 96 08/06/20 10:58 98 H 96 08/06/20 10:53 97 H 96 08/06/20 10:48 95 H 95 08/06/20 10:43 101 H 96 08/06/20 10:38 87 96 08/06/20 10:34 89 94/50 08/06/20 10:33 92 H 96 08/06/20 10:28 93 H 96 08/06/20 10:23 103 H 97 08/06/20 10:18 99 H 99 08/06/20 10:13 99 H 98 08/06/20 10:08 103 H 98 08/06/20 10:04 104 H 106/60 08/06/20 10:03 109 H 98 08/06/20 09:58 98 H 98 Intake and Output 08/06/20 08/07/20 08/07/20 22:59 06:59 14:59 Intake Total 240 Output Total 300 Balance -60 Intake: Oral 240 Output: Urine 300 Void 300 Other: Total, Intake Amount 240 Total, Output Amount 300 # Voids Void 1 Estimated Blood Loss 250 - Exam Breasts: Present: deferred Cardiovascular: Present: Regular rate, Normal S1, Normal S2 Lungs: Present: Clear to auscultation, Normal air movement Abdomen: Present: normal appearance, soft Uterus: Present: normal, firm Extremities: Present: normal Incision: Present: normal, dry, intact - Labs Labs: Abnormal lab results 08/07/20 Range/Units 09:02 Hgb 8.9 L (10.1-14.3) gm/dl Hct 28.6 L (30.3-42.9) %
[2020-08-07] MEDS ORDERED: PRENATAL VIT27-FE FUMARATE-FOLIC ACID VIT TAB PO SCH (10:00)
--- NOTE | 2020-08-07 10:13 | Discharge Summary ---
Providers - Providers Date of Admission: 08/06/20 03:44 Date of discharge: 08/07/20 Attending physician: SHERLEY VAZQUEZ Primary care physician: SHERLEY VAZQUEZ Hospitalization Reason for admission: active labor Delivery: Laceration: none complications: none Discharge diagnosis: IUP at term delivered [place] baby: male Hospital course: unremarkable Condition at discharge: Good Disposition: DC-01 TO HOME OR SELFCARE Plan - Discharge Medications Prescriptions: Ferrous Sulfate [Feosol 325 MG tab] 325 mg PO BID #60 tablet Ibuprofen [Motrin] 800 mg PO Q8HR PRN #40 tablet PRN Reason: Pain, Mild (1-3) HYDROcodone/APAP 5-325 [[place] 5/325] 1 each PO Q6HR PRN #15 tablet PRN Reason: Pain - Provider Discharge Summary Activity: routine, no sex for 6 weeks, no heavy lifting 4 weeks, no strenuous exercise Diet: routine Instructions: routine Additional instructions: [] Smoking cessation referral if applicable(refer to patient education folder for contact #) [] Refer to [facility] Booklet Call your doctor immediately for: * Fever > 100.5 * Heavy vaginal bleeding ( >1 pad per hour) * Severe persistent headache * Shortness of breath * Reddened, hot, painful area to leg or breast * Drainage or odor from incision. * Keep incision clean and dry at all times and follow doctor's instructions regarding bathing/showering - Follow up plan Follow up: SHERLEY VAZQUEZ MD [Primary Care Provider] - 6 Weeks
[2020-08-07] MEDS: IBUPROFEN 600 MG TAB PO SCH (12:27)
[2020-08-07 17:02] VITALS: BP 106/79
== END 2020-08-07 17:30 | disposition home or self-care (01) | DRG 775 ==
LOC: LAB 23:26 → APU 23:41 → LD 08-06 03:44 → LAB 08-06 03:44 → OB 08-06 17:58
PROVIDERS: ADMIT Obstetrics & Gynecology; ATTEND Obstetrics & Gynecology
PROC: 10E0XZZ Delivery of Products of Conception, External Approach (ICD-10-PCS; principal; 2020-08-06)
PROC: 0KQM0ZZ Repair Perineum Muscle, Open Approach (ICD-10-PCS; 2020-08-06)
PROC: 3E0R3BZ Introduction of Anesthetic Agent into Spinal Canal, Percutaneous Approach (ICD-10-PCS; 2020-08-06)
PROC: 00HU33Z Insertion of Infusion Device into Spinal Canal, Percutaneous Approach (ICD-10-PCS; 2020-08-06)
DX: O99.02 Anemia complicating childbirth (principal); Z37.0 Single live birth; D64.9 Anemia, unspecified; Z3A.39 39 weeks gestation of pregnancy; O70.1 Second degree perineal laceration during delivery; Z20.822 Contact with and (suspected) exposure to COVID-19
CPT/HCPCS: 36415; 59025; 85014; 85018; 85027; 86592; 86706; 86850; 86900; 86901; 96360; G0378; J2590; J7120; U0003